=== PATIENT | female | born 1945 | race African-American/Black ===

== ENCOUNTER 2020-01-12 18:59 | Inpatient (IN) ==
[2020-01-12] MEDS ORDERED: SODIUM CHLORIDE 0.9% 1,000 ML IV STA (19:30)
[2020-01-12 19:33] LABS: Basophils % 0.2 % (0.0-0.8); Hematocrit 31.2 VOL% (35.7-47.0); Hemoglobin 10.6 GM/DL (12.0-16.0); Immature Granulocytes % 0.4 %; Immature Granulocytes Absolute 0.02 #; Lymphocytes # 0.9 10*3/uL (1.4-4.0); Lymphocytes % 15.8 % (21.3-54.2); Mean Corpuscular Volume 93.4 FL (87-102); Mean Platelet Volume 12.2 FL (9.6-12.0); NRBC # 0.53 10*3/uL; Neutrophils % 78.6 % (38.7-73.9); Platelet Count 137 T/CUMM (130-400); Red Blood Count 3.34 MC/CUMM (3.8-5.5); Red Cell Distribution Width 13.8 % (9.3-17.3); White Blood Count 5.4 T/CUMM (4-12)
[2020-01-12 19:40] LABS: Bilirubin,Urine Negative (Negative); Blood, Urine Negative (Negative); Glucose,Urine (UA) Negative (Negative); Hyaline Casts,Urine 4 /LPF (0-3); Ketones,Urine 5 mg/dL (Negative); Mucus,Urine Occasional /LPF (Occasional); Nitrite,Urine Negative (Negative); Protein,Urine 30 MG/DL; Squamous Epithelial Cell,Urine Occasional /HPF (0-10); Urine Appearance CLEAR (Clear); Urine Color Amber (Yellow); Urine Specific Gravity 1.021 (1.001-1.035); WBC,Urine 1 /HPF (0-6)
[2020-01-12 19:55] LABS: Albumin 2.8 G/DL (3.4-5.0); Bilirubin,Total 1.2 MG/DL (0.2-1.0); Calcium 9.3 MG/DL (8.5-10.1); Osmolality,Calculated 293.1 MOS/KG (273-304)
[2020-01-12] MEDS ORDERED: ONDANSETRON 4 MG/2 ML VIAL IV PRN (21:15)
[2020-01-12] MEDS ORDERED: GLUCAGON 1 MG VIAL IM PRN (21:15)
[2020-01-12] MEDS ORDERED: DEXTROSE 50% 25 GM/50 ML VIAL IV PRN (21:15)
[2020-01-12] MEDS: POTASSIUM CHLORIDE INJ 40 MEQ in SODIUM CHLORIDE 0.45% 1,000 ML IV SCH (21:53)
[2020-01-13 07:15] LABS: Basophils % 0.1 % (0.0-0.8); Hematocrit 30.2 VOL% (35.7-47.0); Hemoglobin 10.3 GM/DL (12.0-16.0); Immature Granulocytes % 0.4 %; Lymphocytes % 5.4 % (21.3-54.2); Mean Corpuscular HGB Conc 34.1 GM/DL (32-36); Mean Corpuscular Volume 93.5 FL (87-102); Monocytes % 8.1 % (1.7-12.7); Platelet Count 123 T/CUMM (130-400); Red Blood Count 3.23 MC/CUMM (3.8-5.5); Red Cell Distribution Width 13.9 % (9.3-17.3); White Blood Count 7.8 T/CUMM (4-12)
[2020-01-13 07:16] LABS: Immature Granulocytes Absolute 0.03 #; Lymphocytes # 0.4 10*3/uL (1.4-4.0)
[2020-01-13 07:45] LABS: Albumin 2.7 G/DL (3.4-5.0); Bilirubin,Total 1.2 MG/DL (0.2-1.0); Calcium 10.1 MG/DL (8.5-10.1); Osmolality,Calculated 284.5 MOS/KG (273-304); Total Protein 7.2 G/DL (6.4-8.3)
[2020-01-13] MEDS: ENOXAPARIN 40 MG/0.4 ML SYRINGE SUBCUT SCH (08:48)
[2020-01-13] MEDS: PANTOPRAZOLE 40 MG TABLET PO SCH ×2 (08:48→10:42)
[2020-01-13] MEDS: POTASSIUM CHLORIDE INJ 40 MEQ in SODIUM CHLORIDE 0.45% 1,000 ML IV SCH (13:39)
[2020-01-13 14:51] LABS: Folate 3.1 NG/ML (5.4-24.0); Vitamin B12 932 PG/ML (211-911)
[2020-01-14] MEDS: POTASSIUM CHLORIDE INJ 40 MEQ in SODIUM CHLORIDE 0.45% 1,000 ML IV SCH ×2 (02:16→16:13)
[2020-01-14 05:19] LABS: Basophils % 0.1 % (0.0-0.8); Hematocrit 26.9 VOL% (35.7-47.0); Immature Granulocytes % 0.3 %; Immature Granulocytes Absolute 0.03 #; Lymphocytes # 1.5 10*3/uL (1.4-4.0); Lymphocytes % 17.8 % (21.3-54.2); Mean Corpuscular HGB Conc 33.5 GM/DL (32-36); Mean Corpuscular Volume 93.7 FL (87-102); Mean Platelet Volume 12.4 FL (9.6-12.0); Monocytes % 7.3 % (1.7-12.7); NRBC # 0.19 10*3/uL; Neutrophils % 74.5 % (38.7-73.9); Platelet Count 133 T/CUMM (130-400); Red Blood Count 2.87 MC/CUMM (3.8-5.5); White Blood Count 8.6 T/CUMM (4-12)
[2020-01-14 05:46] LABS: Calcium 9.1 MG/DL (8.5-10.1); Osmolality,Calculated 282.4 MOS/KG (273-304)
[2020-01-14] MEDS: ENOXAPARIN 40 MG/0.4 ML SYRINGE SUBCUT SCH (09:00)
[2020-01-14] MEDS: PANTOPRAZOLE 40 MG TABLET PO SCH (09:04)
[2020-01-15 05:51] LABS: Hematocrit 28.3 VOL% (35.7-47.0); Hemoglobin 9.5 GM/DL (12.0-16.0); Immature Granulocytes % 0.5 %; Immature Granulocytes Absolute 0.03 #; Lymphocytes # 1.3 10*3/uL (1.4-4.0); Lymphocytes % 20.5 % (21.3-54.2); Mean Corpuscular HGB Conc 33.6 GM/DL (32-36); Monocytes % 8.3 % (1.7-12.7); NRBC # 0.36 10*3/uL; Neutrophils % 70.7 % (38.7-73.9); Platelet Count 143 T/CUMM (130-400); Red Blood Count 3.01 MC/CUMM (3.8-5.5); Red Cell Distribution Width 14.2 % (9.3-17.3); White Blood Count 6.4 T/CUMM (4-12)
[2020-01-15 06:07] LABS: Calcium 9.1 MG/DL (8.5-10.1); Osmolality,Calculated 272.8 MOS/KG (273-304)
[2020-01-15] MEDS ORDERED: MAGNESIUM SULF RIDER 2 GM in PREMIX 1 EACH IV PRN (08:04)
[2020-01-15] MEDS ORDERED: MAGNESIUM SULF RIDER 4 GM in PREMIX 1 EACH IV PRN (08:04)
[2020-01-15] MEDS: ENOXAPARIN 40 MG/0.4 ML SYRINGE SUBCUT SCH (08:36)
[2020-01-15] MEDS: SODIUM CHLORIDE 0.9% 1,000 ML IV SCH ×2 (08:37→20:51)
[2020-01-15] MEDS: PANTOPRAZOLE 40 MG TABLET PO SCH (08:37)
[2020-01-15] MEDS ORDERED: ONDANSETRON 4 MG/2 ML VIAL IV PRN (09:31)
[2020-01-15 12:37] LABS: Osmolality,Calculated 274.7 MOS/KG (273-304)
[2020-01-16] MEDS ORDERED: ceFAZolin 1,000 MG in SYRINGE 1 EACH IV ONE (06:00)
[2020-01-16 06:03] LABS: Hematocrit 26.8 VOL% (35.7-47.0); Hemoglobin 8.9 GM/DL (12.0-16.0); Immature Granulocytes % 0.4 %; Immature Granulocytes Absolute 0.02 #; Lymphocytes # 0.9 10*3/uL (1.4-4.0); Lymphocytes % 20.1 % (21.3-54.2); Mean Corpuscular HGB Conc 33.2 GM/DL (32-36); Mean Corpuscular Volume 93.7 FL (87-102); Mean Platelet Volume 12.2 FL (9.6-12.0); Monocytes % 8.5 % (1.7-12.7); Platelet Count 126 T/CUMM (130-400); Red Blood Count 2.86 MC/CUMM (3.8-5.5); Red Cell Distribution Width 14.4 % (9.3-17.3); White Blood Count 4.5 T/CUMM (4-12)
[2020-01-16] MEDS: CLINDAMYCIN INJ 600 MG in PREMIX 1 EACH IV SCH ×3 (06:20→21:00)
[2020-01-16 06:25] LABS: Anisocytosis 2+; Platelet Estimate Adequate
[2020-01-16 06:26] LABS: Macrocytosis 1+; Target Cells 1+
[2020-01-16 06:31] LABS: Calcium 8.6 MG/DL (8.5-10.1); Osmolality,Calculated 272.7 MOS/KG (273-304)
[2020-01-16] MEDS: PANTOPRAZOLE 40 MG TABLET PO SCH (14:14)
[2020-01-16] MEDS: SODIUM CHLORIDE 0.9% 1,000 ML IV SCH (14:14)
[2020-01-16] MEDS: THIAMINE 100 MG TABLET PO SCH (14:14)
[2020-01-16 16:59] LABS: Calcium 8.2 MG/DL (8.5-10.1); Osmolality,Calculated 277.4 MOS/KG (273-304)
[2020-01-17] MEDS: SODIUM CHLORIDE 0.9% 1,000 ML IV SCH ×3 (06:13→20:00)
[2020-01-17 06:31] LABS: Eosinophils % 0.2 % (0.00-10.9); Hematocrit 24.3 VOL% (35.7-47.0); Hemoglobin 7.9 GM/DL (12.0-16.0); Immature Granulocytes % 0.3 %; Immature Granulocytes Absolute 0.02 #; Lymphocytes % 17.1 % (21.3-54.2); Mean Corpuscular HGB Conc 32.5 GM/DL (32-36); Mean Corpuscular Volume 96.4 FL (87-102); Mean Platelet Volume 11.1 FL (9.6-12.0); Monocytes % 6.8 % (1.7-12.7); NRBC # 0.23 10*3/uL; Neutrophils % 75.6 % (38.7-73.9); Platelet Count 140 T/CUMM (130-400); Red Blood Count 2.52 MC/CUMM (3.8-5.5); Red Cell Distribution Width 14.6 % (9.3-17.3)
[2020-01-17 07:14] LABS: Hypochromasia 1+; Microcytosis Slight; Ovalocytes Slight; Platelet Estimate Adequate
[2020-01-17] MEDS: PANTOPRAZOLE 40 MG TABLET PO SCH (08:15)
[2020-01-17] MEDS: THIAMINE 100 MG TABLET PO SCH (08:15)
[2020-01-17] MEDS: MULTIVITAMIN LIQUID (CENTRUM) 60 ML BOTTLE PO SCH (08:17)
[2020-01-17 09:09] LABS: Calcium 8.5 MG/DL (8.5-10.1); Osmolality,Calculated 278.3 MOS/KG (273-304)
[2020-01-17 16:18] LABS: Calcium 8.6 MG/DL (8.5-10.1)
[2020-01-17] MEDS ORDERED: DEXTROSE 50% 25 GM/50 ML VIAL IV PRN ×2 (16:49→16:54)
[2020-01-18 04:06] LABS: Basophils % 0.1 % (0.0-0.8); Eosinophils % 0.2 % (0.00-10.9); Hematocrit 24.3 VOL% (35.7-47.0); Immature Granulocytes % 0.5 %; Immature Granulocytes Absolute 0.04 #; Lymphocytes # 1.6 10*3/uL (1.4-4.0); Lymphocytes % 18.7 % (21.3-54.2); Mean Corpuscular HGB Conc 32.9 GM/DL (32-36); Mean Corpuscular Volume 94.9 FL (87-102); Mean Platelet Volume 11.1 FL (9.6-12.0); Monocytes % 7.9 % (1.7-12.7); NRBC # 0.29 10*3/uL; Neutrophils % 72.6 % (38.7-73.9); Platelet Count 143 T/CUMM (130-400); Red Blood Count 2.56 MC/CUMM (3.8-5.5); Red Cell Distribution Width 14.6 % (9.3-17.3); White Blood Count 8.5 T/CUMM (4-12)
[2020-01-18 04:27] LABS: Calcium 8.9 MG/DL (8.5-10.1)
[2020-01-18 04:33] LABS: % Iron Saturation 18.1 % (18-50); Ferritin 1634.4 ng/ml (8-252)
[2020-01-18] MEDS: SODIUM CHLORIDE 0.9% 1,000 ML IV SCH (06:49)
[2020-01-18] MEDS: MULTIVITAMIN LIQUID (CENTRUM) 60 ML BOTTLE PO SCH (10:09)
[2020-01-18] MEDS: PANTOPRAZOLE 40 MG TABLET PO SCH (10:09)
[2020-01-18] MEDS: THIAMINE 100 MG TABLET PO SCH (10:09)
[2020-01-18] MEDS: ENOXAPARIN 40 MG/0.4 ML SYRINGE SUBCUT SCH (10:13)
[2020-01-18] MEDS: APIXABAN 2.5 MG TABLET PO SCH ×2 (15:50→20:41)
[2020-01-18] MEDS ORDERED: POTASSIUM PHOSPHATE 15 MMOL in SODIUM CHLORIDE 0.9% 100 ML IV ONE (16:00)
[2020-01-18 16:22] LABS: Calcium 8.3 MG/DL (8.5-10.1); Osmolality,Calculated 286.8 MOS/KG (273-304)
[2020-01-19 05:40] LABS: Basophils % 0.2 % (0.0-0.8); Eosinophils # 0.1 10*3/uL (0.0-0.87); Eosinophils % 1.1 % (0.00-10.9); Hematocrit 23.8 VOL% (35.7-47.0); Hemoglobin 7.9 GM/DL (12.0-16.0); Immature Granulocytes % 0.6 %; Immature Granulocytes Absolute 0.03 #; Lymphocytes # 1.4 10*3/uL (1.4-4.0); Lymphocytes % 26.8 % (21.3-54.2); Mean Corpuscular HGB Conc 33.2 GM/DL (32-36); Mean Corpuscular Volume 94.8 FL (87-102); Monocytes % 6.2 % (1.7-12.7); NRBC # 0.25 10*3/uL; Neutrophils % 65.1 % (38.7-73.9); Platelet Count 147 T/CUMM (130-400); Red Blood Count 2.51 MC/CUMM (3.8-5.5); Red Cell Distribution Width 14.5 % (9.3-17.3); White Blood Count 5.3 T/CUMM (4-12)
[2020-01-19 05:51] LABS: Calcium 8.3 MG/DL (8.5-10.1)
[2020-01-19] MEDS ORDERED: ACETAMINOPHEN 325 MG TABLET PO PRN (08:35)
[2020-01-19] MEDS: THIAMINE 100 MG TABLET PO SCH (10:11)
[2020-01-19] MEDS: APIXABAN 2.5 MG TABLET PO SCH ×2 (10:11→22:02)
[2020-01-19] MEDS: PANTOPRAZOLE 40 MG TABLET PO SCH (10:11)
[2020-01-19] MEDS: MULTIVITAMIN LIQUID (CENTRUM) 60 ML BOTTLE PO SCH (10:12)
[2020-01-19] MEDS ORDERED: MIRTAZAPINE 7.5 MG PO SCH (21:00)
[2020-01-19] MEDS: MIRTAZAPINE 15 MG TABLET PO SCH (22:01)
[2020-01-19] MEDS: SIMVASTATIN 10 MG TABLET PO SCH (22:02)
[2020-01-20 04:27] LABS: Basophils % 0.2 % (0.0-0.8); Eosinophils # 0.1 10*3/uL (0.0-0.87); Eosinophils % 1.2 % (0.00-10.9); Hematocrit 26.7 VOL% (35.7-47.0); Hemoglobin 8.7 GM/DL (12.0-16.0); Immature Granulocytes % 0.5 %; Immature Granulocytes Absolute 0.03 #; Lymphocytes # 1.5 10*3/uL (1.4-4.0); Lymphocytes % 22.4 % (21.3-54.2); Mean Corpuscular HGB Conc 32.6 GM/DL (32-36); Mean Corpuscular Volume 95.4 FL (87-102); Mean Platelet Volume 12.1 FL (9.6-12.0); Monocytes % 7.8 % (1.7-12.7); NRBC # 0.25 10*3/uL; Neutrophils % 67.9 % (38.7-73.9); Platelet Count 141 T/CUMM (130-400); Red Cell Distribution Width 15.2 % (9.3-17.3); White Blood Count 6.7 T/CUMM (4-12)
[2020-01-20 04:48] LABS: Calcium 8.3 MG/DL (8.5-10.1); Osmolality,Calculated 277.4 MOS/KG (273-304)
[2020-01-20] MEDS: THIAMINE 100 MG TABLET PO SCH (08:22)
[2020-01-20] MEDS: PANTOPRAZOLE 40 MG TABLET PO SCH (08:22)
[2020-01-20] MEDS: APIXABAN 2.5 MG TABLET PO SCH ×2 (08:22→21:24)
[2020-01-20] MEDS: MULTIVITAMIN LIQUID (CENTRUM) 60 ML BOTTLE PO SCH (08:23)
[2020-01-20] MEDS: MIRTAZAPINE 15 MG TABLET PO SCH (21:24)
[2020-01-20] MEDS: SIMVASTATIN 10 MG TABLET PO SCH (21:24)
[2020-01-21 06:23] LABS: Basophils % 0.3 % (0.0-0.8); Eosinophils # 0.1 10*3/uL (0.0-0.87); Eosinophils % 1.2 % (0.00-10.9); Hematocrit 26.8 VOL% (35.7-47.0); Hemoglobin 8.7 GM/DL (12.0-16.0); Immature Granulocytes % 0.3 %; Immature Granulocytes Absolute 0.02 #; Lymphocytes # 1.4 10*3/uL (1.4-4.0); Lymphocytes % 20.7 % (21.3-54.2); Mean Corpuscular HGB Conc 32.5 GM/DL (32-36); Mean Corpuscular Volume 96.4 FL (87-102); Mean Platelet Volume 12.3 FL (9.6-12.0); Monocytes % 7.7 % (1.7-12.7); NRBC # 0.07 10*3/uL; Neutrophils % 69.8 % (38.7-73.9); Platelet Count 176 T/CUMM (130-400); Red Blood Count 2.78 MC/CUMM (3.8-5.5); Red Cell Distribution Width 16.3 % (9.3-17.3); White Blood Count 6.5 T/CUMM (4-12)
[2020-01-21 06:56] LABS: Calcium 8.5 MG/DL (8.5-10.1); Osmolality,Calculated 279.4 MOS/KG (273-304)
[2020-01-21] MEDS: PANTOPRAZOLE 40 MG TABLET PO SCH (09:22)
[2020-01-21] MEDS: THIAMINE 100 MG TABLET PO SCH (09:22)
[2020-01-21] MEDS: APIXABAN 2.5 MG TABLET PO SCH ×2 (09:22→20:51)
[2020-01-21] MEDS: MULTIVITAMIN LIQUID (CENTRUM) 60 ML BOTTLE PO SCH (09:22)
[2020-01-21] MEDS ORDERED: DEXTROSE 50% 25 GM/50 ML VIAL IV PRN (10:04)
[2020-01-21] MEDS: MIRTAZAPINE 15 MG TABLET PO SCH (20:51)
[2020-01-21] MEDS: SIMVASTATIN 10 MG TABLET PO SCH (20:51)
[2020-01-22 06:24] LABS: Basophils % 0.3 % (0.0-0.8); Eosinophils # 0.1 10*3/uL (0.0-0.87); Eosinophils % 0.7 % (0.00-10.9); Hematocrit 26.3 VOL% (35.7-47.0); Hemoglobin 8.6 GM/DL (12.0-16.0); Immature Granulocytes % 0.6 %; Immature Granulocytes Absolute 0.04 #; Lymphocytes # 1.3 10*3/uL (1.4-4.0); Mean Corpuscular HGB Conc 32.7 GM/DL (32-36); Mean Corpuscular Volume 96.3 FL (87-102); Monocytes % 5.8 % (1.7-12.7); NRBC # 0.02 10*3/uL; Neutrophils % 73.6 % (38.7-73.9); Platelet Count 182 T/CUMM (130-400); Red Blood Count 2.73 MC/CUMM (3.8-5.5); Red Cell Distribution Width 17.2 % (9.3-17.3); White Blood Count 6.9 T/CUMM (4-12)
[2020-01-22 07:00] LABS: Calcium 8.6 MG/DL (8.5-10.1); Osmolality,Calculated 280.3 MOS/KG (273-304)
[2020-01-22] MEDS: THIAMINE 100 MG TABLET PO SCH (09:05)
[2020-01-22] MEDS: PANTOPRAZOLE 40 MG TABLET PO SCH (09:05)
[2020-01-22] MEDS: APIXABAN 2.5 MG TABLET PO SCH ×2 (09:05→21:42)
[2020-01-22] MEDS: MULTIVITAMIN LIQUID (CENTRUM) 60 ML BOTTLE PO SCH (09:06)
[2020-01-22] MEDS: MIRTAZAPINE 15 MG TABLET PO SCH (21:42)
[2020-01-22] MEDS: SIMVASTATIN 10 MG TABLET PO SCH (21:43)
[2020-01-23 04:01] LABS: Basophils % 0.3 % (0.0-0.8); Eosinophils # 0.1 10*3/uL (0.0-0.87); Eosinophils % 0.9 % (0.00-10.9); Hematocrit 25.2 VOL% (35.7-47.0); Hemoglobin 8.2 GM/DL (12.0-16.0); Immature Granulocytes % 0.4 %; Immature Granulocytes Absolute 0.03 #; Lymphocytes # 1.6 10*3/uL (1.4-4.0); Lymphocytes % 23.8 % (21.3-54.2); Mean Corpuscular HGB Conc 32.5 GM/DL (32-36); Mean Corpuscular Volume 95.8 FL (87-102); Mean Platelet Volume 11.2 FL (9.6-12.0); Monocytes % 7.4 % (1.7-12.7); NRBC # 0.03 10*3/uL; Neutrophils % 67.2 % (38.7-73.9); Platelet Count 182 T/CUMM (130-400); Red Blood Count 2.63 MC/CUMM (3.8-5.5); Red Cell Distribution Width 17.2 % (9.3-17.3); White Blood Count 6.7 T/CUMM (4-12)
[2020-01-23 04:23] LABS: Calcium 8.6 MG/DL (8.5-10.1); Osmolality,Calculated 278.4 MOS/KG (273-304)
[2020-01-23] MEDS: THIAMINE 100 MG TABLET PO SCH (08:45)
[2020-01-23] MEDS: APIXABAN 2.5 MG TABLET PO SCH (08:45)
[2020-01-23] MEDS: PANTOPRAZOLE 40 MG TABLET PO SCH (08:45)
[2020-01-23] MEDS: MULTIVITAMIN LIQUID (CENTRUM) 60 ML BOTTLE PO SCH (08:46)
[2020-01-23 09:36] LABS: Free T4 (Free Thyroxine) 0.71 NG/DL (0.76-1.46); Thyroid Stimulating Hormone 14.4 uIU/ml (0.358-3.74)
[2020-01-23 15:53] VITALS: BP 118/78
== END 2020-01-23 15:50 | disposition home health service (06) | DRG 640 ==
LOC: EDUNIT# → N.ED 18:59 → N.EDINP 18:59 → N.4E 22:52 → SUATTDRO 01-15 08:15
PROVIDERS: ADMIT Internal Medicine; ATTEND Internal Medicine
PROC: EGDWPEG (ICD-10-PCS; 2020-01-16 07:35)

== ENCOUNTER 2021-07-14 19:15 | Observation (INO) ==
[2021-07-14] MEDS ORDERED: SODIUM CHLORIDE 0.9% 1,000 ML IV STA (19:55)
[2021-07-14 20:37] LABS: Basophils % 0.6 % (0.0-0.8); Eosinophils % 0.1 % (0.00-10.9); Hematocrit 32.8 VOL% (35.7-47.0); Hemoglobin 11.1 GM/DL (12.0-16.0); Immature Granulocytes % 0.1 %; Immature Granulocytes Absolute 0.01 #; Lymphocytes % 72.5 % (21.3-54.2); Mean Corpuscular HGB Conc 33.8 GM/DL (32-36); Mean Corpuscular Volume 100.3 FL (87-102); Mean Platelet Volume 10.6 FL (9.6-12.0); Monocytes % 4.9 % (1.7-12.7); NRBC # 0.08 10*3/uL; Neutrophils % 21.8 % (38.7-73.9); Platelet Count 178 T/CUMM (130-400); Red Blood Count 3.27 MC/CUMM (3.8-5.5); Red Cell Distribution Width 15.3 % (9.3-17.3); White Blood Count 6.9 T/CUMM (4-12)
[2021-07-14 20:46] LABS: PT Patient Result 11.1 SECS (10.5-12.0)
[2021-07-14 21:01] LABS: Alanine Aminotransferase 29 U/L (13-56); Alkaline Phosphatase 123 U/L (45-117); Aspartate Amino Transferase 50 U/L (0-37); Blood Urea Nitrogen 16 MG/DL (7-18); Calcium 9.3 MG/DL (8.5-10.1); Carbon Dioxide 25 MMOL/L (21-32); Estimated Glom Filtration Rate 52 ML/MIN; Glucose 66 MG/DL (74-106); Osmolality,Calculated 275.5 MOS/KG (273-304); Sodium 139 MMOL/L (136-145); Total Protein 7.3 G/DL (6.4-8.2)
[2021-07-14 21:05] LABS: Lymphocytes 71 % (20-55); Nucleated Red Blood Cells 6 (0-5); Platelet Estimate Adequate; Segmented Neutrophils 22 % (50-85); Target Cells 1+; Total Cells Counted 100
[2021-07-14] MEDS ORDERED: DEXTROSE 50% 25 GM/50 ML VIAL IV STA ×2 (21:05→21:06)
[2021-07-14 21:07] LABS: Polychromasia Slight
[2021-07-14] MEDS ORDERED: DEXTROSE 50% 25 GM/50 ML SYRINGE IV STA (21:07)
[2021-07-14 21:24] LABS: Urine Appearance Clear (Clear); Urine Color Yellow (Yellow)
[2021-07-14 21:25] LABS: Bilirubin,Urine Negative (Negative); Blood, Urine Negative (Negative); Glucose,Urine (UA) Negative (Negative); Hyaline Casts,Urine 18 /LPF (0-3); Ketones,Urine 15 mg/dL (Negative); Mucus,Urine Many /LPF (Occasional); Nitrite,Urine Negative (Negative); Protein,Urine Negative (Negative); RBC,Urine 5 /HPF (0-4); Squamous Epithelial Cell,Urine Occasional /HPF (0-10); Urine Specific Gravity >= 1.030 (1.001-1.035); Urine pH 5.5 (4.5-8.0)
[2021-07-14] MEDS ORDERED: ONDANSETRON 4 MG/2 ML VIAL IV PRN (21:46)
[2021-07-14] MEDS ORDERED: GLUCAGON 1 MG VIAL IM PRN (21:46)
[2021-07-14 21:49] LABS: Barbiturates Screen,Urine Negative (Negative); Benzodiazepines Screen,Urine Negative (Negative); Cannabinoid Screen,Urine Negative (Negative); Opiate Screen,Urine Negative (Negative); Phencyclidine Screen,Urine Negative (Negative)
[2021-07-14] MEDS ORDERED: DEXTROSE 10% 250 ML BAG IV PRN (21:56)
[2021-07-14] MEDS ORDERED: ENOXAPARIN 30 MG/0.3 ML SYRINGE SUBCUT SCH (22:00)
[2021-07-14] MEDS: DEXTROSE 5% NACL 0.9% 1,000 ML IV SCH (23:45)
[2021-07-15] MEDS ORDERED: ACETAMINOPHEN 325 MG TABLET PO PRN (01:04)
[2021-07-15 08:37] LABS: Basophils % 1.2 % (0.0-0.8); Eosinophils % 0.3 % (0.00-10.9); Hematocrit 28.7 VOL% (35.7-47.0); Hemoglobin 9.7 GM/DL (12.0-16.0); Lymphocytes % 57.6 % (21.3-54.2); Mean Corpuscular HGB Conc 33.8 GM/DL (32-36); Mean Corpuscular Volume 99.7 FL (87-102); Mean Platelet Volume 10.4 FL (9.6-12.0); Monocytes % 15.6 % (1.7-12.7); NRBC # 0.03 10*3/uL; Neutrophils % 25.3 % (38.7-73.9); Platelet Count 143 T/CUMM (130-400); Red Blood Count 2.88 MC/CUMM (3.8-5.5); Red Cell Distribution Width 15.2 % (9.3-17.3); White Blood Count 3.5 T/CUMM (4-12)
[2021-07-15] MEDS: PANTOPRAZOLE 40 MG TABLET PO SCH (08:48)
[2021-07-15] MEDS: MIRTAZAPINE 30 MG TABLET PO SCH (08:48)
[2021-07-15] MEDS: APIXABAN 2.5 MG TABLET PO SCH ×2 (08:48→22:03)
[2021-07-15] MEDS: MULTIVITAMIN (CENTRUM) TABLET PO SCH (08:48)
[2021-07-15 08:58] LABS: Albumin 2.2 G/DL (3.4-5.0); Bilirubin,Total 0.6 MG/DL (0.20-1.00); Calcium 7.9 MG/DL (8.5-10.1); Osmolality,Calculated 281.1 MOS/KG (273-304); Total Protein 5.9 G/DL (6.4-8.2)
[2021-07-15] MEDS ORDERED: PANTOPRAZOLE 40 MG TABLET PO SCH (09:00)
[2021-07-15] MEDS ORDERED: NON-FORMULARY MEDICATION (Chlorpheniramine-Phenylephrine [Ed A-Hist] 4-10 mg Tablet) PO SCH (09:00)
[2021-07-15 09:18] LABS: Eosinophils 1 % (0-10); Hypochromia 1+; Lymphocytes 58 % (20-55); Microcytosis 1+; Platelet Estimate Adequate; Segmented Neutrophils 29 % (50-85); Total Cells Counted 100
[2021-07-15] MEDS: DEXTROSE 5% NACL 0.9% 1,000 ML IV SCH (09:37)
[2021-07-15] MEDS ORDERED: POTASSIUM BICARB EFFERVESCENT 20 MEQ TAB.EFF PO ONE (15:00)
[2021-07-16] MEDS: DEXTROSE 5% NACL 0.9% 1,000 ML IV SCH (07:25)
[2021-07-16] MEDS: PANTOPRAZOLE 40 MG TABLET PO SCH (09:01)
[2021-07-16] MEDS: MIRTAZAPINE 30 MG TABLET PO SCH (09:01)
[2021-07-16] MEDS: MULTIVITAMIN (CENTRUM) TABLET PO SCH (09:01)
[2021-07-16] MEDS: APIXABAN 2.5 MG TABLET PO SCH (09:01)
[2021-07-16] MEDS ORDERED: CYPROHEPTADINE 4 MG TABLET PO SCH (11:00)
[2021-07-16 11:50] LABS: Folate 13.32 NG/ML (5.38-24.0)
[2021-07-16 12:47] VITALS: BP 125/80
== END 2021-07-16 13:28 | disposition home health service (06) ==
LOC: N.ED 19:15 → N.5E 19:15 → SUATTDRO 21:46 → N.5E 23:09
PROVIDERS: ADMIT Internal Medicine; ATTEND Internal Medicine